=== PATIENT | male | born 1965 | race Two or more races ===

== ENCOUNTER 2020-07-20 18:24 | Emergency (ER) | payer OTHER ==
[~2020-07-20] VITALS: Ht 177.8 cm; Wt 106.6 kg
[2020-07-20] MEDS ORDERED: LANSOPRAZOLE30 MG PO (18:47)
== END 2020-07-20 22:26 | disposition home or self-care (01) ==
LOC: ER 18:24
DX: D72.823 Leukemoid reaction (principal)

== ENCOUNTER 2023-12-19 11:46 | Emergency (ER) | payer OTHER ==
[~2023-12-19] VITALS: Ht 177.8 cm; Wt 90.7 kg
[~2023-12-19 11:46] MED LIST: LANSOPRAZOLE30 MG PO
[2023-12-19] MEDS ORDERED: SPRYCEL100 MG PO (12:34)
[2023-12-19] MEDS ORDERED: KETOROLAC TROMETHAMINE 30 MG VIAL IM ONE (12:45)
[2023-12-19] MEDS ORDERED: GABAPENTIN 100 MG CAPSULE PO ONE (12:45)
[2023-12-19] MEDS ORDERED: KETOROLAC TROMETHAMINE 30 MG VIAL ONE (13:15)
== END 2023-12-19 13:28 | disposition home or self-care (01) ==
LOC: ER 11:57
DX: B02.8 Zoster with other complications (principal)